=== PATIENT | female | born 1995 | race Caucasian/White ===

== ENCOUNTER 2022-01-25 18:57 | Inpatient (IN) | payer OTHER ==
[~2022-01-25] VITALS: Ht 162.6 cm; Wt 84.4 kg
[2022-01-25] MEDS ORDERED: VALTREX500 MG PO (23:10)
[2022-01-25] MEDS ORDERED: PRENATABS FA T1 EACH PO (23:11)
[2022-01-27] MEDS ORDERED: IBUPROFEN600 MG PO (18:01)
[2022-01-27] MEDS ORDERED: COLACE 100MG C100 MG PO (18:01)
[2022-01-28 05:34] LABS: HEMOGLOBIN 10.7 gm/dl (12.3-15.3)
== END 2022-01-29 12:05 | disposition home or self-care (01) | DRG 806 ==
LOC: GENOP 18:57 → OB 22:03
PROVIDERS: Obstetrics & Gynecology; ADMIT Obstetrics & Gynecology
PROC: 4A1HXCZ Monitoring of Products of Conception, Cardiac Rate, External Approach (ICD-10-PCS; 2022-01-25)
PROC: 10E0XZZ Delivery of Products of Conception, External Approach (ICD-10-PCS; principal; 2022-01-27)
PROC: 0HQ9XZZ Repair Perineum Skin, External Approach (ICD-10-PCS; 2022-01-27)
PROC: 10H07YZ Insertion of Other Device into Products of Conception, Via Natural or Artificial Opening (ICD-10-PCS; 2022-01-27)
PROC: 10907ZC Drainage of Amniotic Fluid, Therapeutic from Products of Conception, Via Natural or Artificial Opening (ICD-10-PCS; 2022-01-27)
PROC: 3E0234Z Introduction of Serum, Toxoid and Vaccine into Muscle, Percutaneous Approach (ICD-10-PCS; 2022-01-27)
DX: O99.344 Other mental disorders complicating childbirth (principal); O98.42 Viral hepatitis complicating childbirth; Z37.0 Single live birth; Z20.822 Contact with and (suspected) exposure to COVID-19; B19.20 Unspecified viral hepatitis C without hepatic coma; F41.9 Anxiety disorder, unspecified; Z3A.37 37 weeks gestation of pregnancy; Z28.310 Unvaccinated for COVID-19; Z83.3 Family history of diabetes mellitus; Z83.79 Family history of other diseases of the digestive system; O70.0 First degree perineal laceration during delivery; Z23 Encounter for immunization
CPT/HCPCS: 36415; 85014; 85018; 90707; 90715; J2405; J2590; U0002

== ENCOUNTER → 2022-01-25 | Outpatient (CLI) | payer OTHER ==
[~2022-01-25] MED LIST: COLACE 100MG C100 MG PO; IBUPROFEN600 MG PO; PRENATABS FA T1 EACH PO; VALTREX500 MG PO
[2022-01-25 19:56] LABS: RED BLOOD COUNT 4.07 M/UL (4.00-5.10); WHITE BLOOD COUNT 8.9 K/UL (4.5-11.0)
[2022-01-25 20:16] LABS: BUN/CREATININE RATIO 16 (0-10)
[2022-01-25 20:49] LABS: URINE TOTAL PROTEIN 18 mg/dl
== END ==
LOC: LAB 19:12
PROVIDERS: Physician Assistant
DX: O10.919 Unspecified pre-existing hypertension complicating pregnancy, unspecified trimester (principal)
CPT/HCPCS: 80053; 80076; 80307; 81001; 83615; 84156; 84550; 85025; 85379; 85384; 85610